=== PATIENT | female | born 1965 | race Two or more races ===

== ENCOUNTER 2022-03-07 23:08 | Inpatient (IN) | payer MEDICAID, OTHER ==
[~2022-03-07] VITALS: Ht 162.6 cm; Wt 49.0 kg
[2022-03-07] MEDS ORDERED: SODIUM CHLORIDE 0.9% 1,000 ML IV ONE ×2 (23:45)
[2022-03-07 23:47] LABS: Hemoglobin 10.1 g/dL (12.2-16.2)
[2022-03-07 23:49] LABS: Basophils # (auto) 0 10 ^3/uL (0-0.2); Basophils % (auto) 0.2 % (0.0-2.0); Eosinophils # (auto) 0 10 ^3/uL (0-0.8); Eosinophils % (auto) 0.1 % (0.0-7.0); Hematocrit 30.5 % (36.0-46.0); Lymphocytes # (auto) 1.4 10 ^3/uL (0.4-5.4); Lymphocytes % (auto) 5.6 % (10.0-50.0); Mean Corpuscular Hemoglobin 26.8 pg (28.0-32.0); Mean Corpuscular Volume 81.1 fL (80.0-100.0); Monocytes # (auto) 2.1 10 ^3/uL (0-1.3); Monocytes % (auto) 8.7 % (0.0-12.0); Neutrophils % (auto) 85.4 % (37.0-80.0); Nucleated Red Blood Cells % 0.1 %; Red Blood Cells 3.77 10^6/uL (4.0-5.20); Red Cell Distribution Width 18.5 % (11.8-14.3); White Blood Cell 24.6 10^3/uL (4.4-10.8)
[2022-03-08] MEDS ORDERED: metroNIDAZOLE 500MG/100ML 100 ML IV ONE
[2022-03-08] MEDS ORDERED: cefTRIAXone 1GM/50ML D5W 50 ML IV ONE
[2022-03-08 00:02] LABS: Albumin 2.7 g/dL (3.4-5.0); Calcium 10.3 mg/dL (8.5-10.1); Potassium 4.6 mmol/L (3.5-5.1)
[2022-03-08 00:05] LABS: Bilirubin, Total 1.4 mg/dL (0.2-1.0); Total Protein 8.7 g/dL (6.4-8.2)
[2022-03-08 00:27] LABS: Lactic Acid w/Reflex 2.1 mmol/L (0.4-2.0)
[2022-03-08] MEDS ORDERED: MORPHINE SULFATE 4 MG/ML SYR/VIAL IV ONE (01:00)
[2022-03-08] MEDS ORDERED: ONDANSETRON HCL 4 MG/2 ML VIAL IV ONE (01:00)
[2022-03-08] MEDS ORDERED: MORPHINE SULFATE 4 MG/ML SYR/VIAL ONE (06:44)
[2022-03-08] MEDS ORDERED: VANCOMYCIN 1GM/250ML 250 ML IV ONE (06:45)
[2022-03-08] MEDS ORDERED: MORPHINE SULFATE INJECTION 2 MG/ML SYRG IV ONE (07:15)
[2022-03-08 08:08] LABS: INR 1.33 (0.9-1.15); Partial Thromboplastin Time 37.9 sec (23.6-33.0)
[2022-03-08] MEDS ORDERED: HYDROmorphone HCL 2 MG/ML VL/or syr IV ONE (10:45)
[2022-03-08] MEDS ORDERED: NITROGLYCERIN 0.4 MG SL TAB SL PRN (11:15)
[2022-03-08] MEDS ORDERED: MORPHINE SULFATE INJECTION 2 MG/ML SYRG IV PRN ×2 (11:15→12:15)
[2022-03-08] MEDS ORDERED: OMNIPAQUE ORAL SOLN 500ml 12mg/ml PO ONE (11:54)
[2022-03-08] MEDS ORDERED: LORazepam 0.5 MG TAB PO PRN (12:15)
[2022-03-08] MEDS ORDERED: DOCUSATE SOD 100 MG CAP PO PRN (12:15)
[2022-03-08] MEDS ORDERED: ONDANSETRON HCL 4 MG/2 ML VIAL IV PRN (12:15)
[2022-03-08] MEDS ORDERED: hydrALAZINE HCL 20 MG/ML VL IV PRN (12:15)
[2022-03-08] MEDS: D5W/LACTATED RINGERS 1,000 ML IV SCH (13:40)
[2022-03-08] MEDS: metroNIDAZOLE 500MG/100ML 100 ML IV SCH ×2 (14:09→21:29)
[2022-03-08 15:51] LABS: Urine Bacteria FEW /hpf (None Seen); Urine Blood Negative /uL (Negative); Urine Specific Gravity 1.018 (1.001-1.035); Urine WBC 8 /hpf (0 - 5)
[2022-03-08] MEDS: HYDROmorphone HCL 2 MG/ML VL/or syr IV PRN ×2 (17:10→21:28)
[2022-03-08 19:26] LABS: INR 1.34 (0.9-1.15); Partial Thromboplastin Time 38.5 sec (23.6-33.0)
[2022-03-08 19:27] LABS: Magnesium 1.8 mg/dL (1.6-2.6); Phosphorus 2.3 mg/dL (2.5-4.90)
[2022-03-08] MEDS: HYDROcodone-ACET 5/325MG TAB PO PRN (20:47)
[2022-03-08 22:00] VITALS: BP 126/87
[2022-03-09] VITALS (7 sets, daily range): BP systolic 126–146; BP diastolic 77–84
[2022-03-09] MEDS ORDERED: cefTRIAXone 1GM/50ML D5W 50 ML IV SCH
[2022-03-09] MEDS: D5W/LACTATED RINGERS 1,000 ML IV SCH ×2 (01:35→15:08)
[2022-03-09] MEDS: HYDROmorphone HCL 2 MG/ML VL/or syr IV PRN ×4 (01:39→18:26)
[2022-03-09] MEDS: HYDROcodone-ACET 5/325MG TAB PO PRN (04:50)
[2022-03-09] MEDS: metroNIDAZOLE 500MG/100ML 100 ML IV SCH ×2 (06:12→13:45)
[2022-03-09 06:17] LABS: Eosinophils # (auto) 0 10 ^3/uL (0-0.8); Hematocrit 24.7 % (36.0-46.0); Red Blood Cells 3.08 10^6/uL (4.0-5.20)
[2022-03-09 06:19] LABS: Basophils # (auto) 0 10 ^3/uL (0-0.2); Basophils % (auto) 0.2 % (0.0-2.0); Hemoglobin 8.4 g/dL (12.2-16.2); Lymphocytes # (auto) 1.4 10 ^3/uL (0.4-5.4); Lymphocytes % (auto) 5.9 % (10.0-50.0); Mean Corpuscular Hemoglobin 27.2 pg (28.0-32.0); Mean Corpuscular Volume 80.2 fL (80.0-100.0); Monocytes # (auto) 1.5 10 ^3/uL (0-1.3); Monocytes % (auto) 6.1 % (0.0-12.0); Neutrophils # (auto) 21.3 10 ^3/uL (1.6-8.6); Neutrophils % (auto) 87.8 % (37.0-80.0); Red Cell Distribution Width 18.2 % (11.8-14.3); White Blood Cell 24.2 10^3/uL (4.4-10.8)
[2022-03-09 06:23] LABS: INR 1.37 (0.9-1.15); Partial Thromboplastin Time 40.6 sec (23.6-33.0)
[2022-03-09 06:34] LABS: Chloride 92 mmol/L (98-107); Sodium 133 mmol/L (136-145)
[2022-03-09 06:54] LABS: Alanine Aminotransferase 15 U/L (13-56); Albumin 2.2 g/dL (3.4-5.0); Alkaline Phosphatase 184 U/L (45-117); Anion Gap 11 (5-15); Aspartate Aminotransferase 19 U/L (15-37); Bilirubin, Total 0.9 mg/dL (0.2-1.0); Blood Urea Nitrogen 36 mg/dL (7-18); Calcium 9.4 mg/dL (8.5-10.1); Carbon Dioxide 30 mmol/L (21-32); Cholesterol 151 mg/dL (< 200); Creatine Kinase IFCC 17 U/L (26-192); GFR African American 62 mL/min; GFR Non-African American 51 mL/min; Glucose 133 mg/dL (74-106); HDL Cholesterol 24 mg/dL (40-59); LDL Cholesterol 100 mg/dL (< 100); Lipase 277 U/L (73-393); Phosphorus 1.9 mg/dL (2.5-4.90); Total Protein 7.5 g/dL (6.4-8.2); Triglycerides 140 mg/dL (< 150); Uric Acid 10.5 mg/dL (2.6-6.0)
[2022-03-09 07:42] LABS: CRP High Sensitivity > 19.0 mg/dL (< 0.3)
[2022-03-09 07:44] LABS: Potassium 2.9 mmol/L (3.5-5.1)
[2022-03-09] MEDS: POTASSIUM CHL 20MEQ/100ML 100 ML IV SCH ×2 (08:58→12:04)
[2022-03-09] MEDS ORDERED: HYDROmorphone HCL 2 MG/ML VL/or syr IV PRN (10:00)
[2022-03-09] MEDS: ENOXAPARIN SOD 40 MG/0.4 ML SYRINGE SC SCH (12:04)
[2022-03-09] MEDS ORDERED: POTASSIUM PHOSPHATE 44 MEQ in D5W 5% 250 ML IV ONE (17:45)
[2022-03-09] MEDS: PIPERACILLIN-TAZO 4.5GM 100 ML IV SCH (20:37)
[2022-03-10] VITALS (7 sets, daily range): BP systolic 100–139; BP diastolic 68–85
[2022-03-10 06:49] LABS: Albumin 2.2 g/dL (3.4-5.0); Calcium 9.6 mg/dL (8.5-10.1); Magnesium 2.6 mg/dL (1.6-2.6); Potassium 3.2 mmol/L (3.5-5.1)
[2022-03-10 06:53] LABS: BUN/Creatinine Ratio 29.8; Bilirubin, Total 0.6 mg/dL (0.2-1.0); Phosphorus 2.3 mg/dL (2.5-4.90); Total Protein 7.4 g/dL (6.4-8.2)
[2022-03-10] MEDS: PIPERACILLIN-TAZO 4.5GM 100 ML IV SCH ×2 (07:07→15:05)
[2022-03-10 07:09] LABS: Basophils # (auto) 0.1 10 ^3/uL (0-0.2); Basophils % (auto) 0.5 % (0.0-2.0); Eosinophils # (auto) 0 10 ^3/uL (0-0.8); Eosinophils % (auto) 0.3 % (0.0-7.0); Hematocrit 26.6 % (36.0-46.0); Hemoglobin 8.4 g/dL (12.2-16.2); Lymphocytes # (auto) 1.9 10 ^3/uL (0.4-5.4); Lymphocytes % (auto) 11.5 % (10.0-50.0); Mean Corpuscular Hemoglobin 25.9 pg (28.0-32.0); Mean Corpuscular Hgb Conc. 31.7 g/dL (32.0-36.0); Mean Corpuscular Volume 81.5 fL (80.0-100.0); Monocytes # (auto) 1.2 10 ^3/uL (0-1.3); Monocytes % (auto) 7.3 % (0.0-12.0); Neutrophils % (auto) 80.4 % (37.0-80.0); Nucleated Red Blood Cells % 0.1 %; Red Blood Cells 3.26 10^6/uL (4.0-5.20); Red Cell Distribution Width 18.7 % (11.8-14.3); White Blood Cell 16.2 10^3/uL (4.4-10.8)
[2022-03-10] MEDS: HYDROmorphone HCL 2 MG/ML VL/or syr IV PRN ×4 (08:15→21:48)
[2022-03-10] MEDS: ENOXAPARIN SOD 40 MG/0.4 ML SYRINGE SC SCH (10:39)
[2022-03-10] MEDS ORDERED: POTASSIUM CHL 20MEQ/100ML 100 ML IV ONE (11:00)
[2022-03-10] MEDS ORDERED: BISACODYL 10 MG RECT SUPP PR PRN (12:15)
[2022-03-10] MEDS: POTASSIUM CHL 20MEQ/100ML 100 ML IV SCH (12:19)
[2022-03-10] MEDS ORDERED: PIPERACILLIN-TAZO 4.5GM 100 ML IV SCH (14:45)
[2022-03-11] VITALS (7 sets, daily range): BP systolic 96–118; BP diastolic 70–128
[2022-03-11] MEDS: PIPERACILLIN-TAZO 4.5GM 100 ML IV SCH ×4 (00:57→22:28)
[2022-03-11 06:23] LABS: Basophils # (auto) 0.1 10 ^3/uL (0-0.2); Eosinophils # (auto) 0 10 ^3/uL (0-0.8); White Blood Cell 27.6 10^3/uL (4.4-10.8)
[2022-03-11 06:25] LABS: Basophils % (auto) 0.3 % (0.0-2.0); Hematocrit 27.5 % (36.0-46.0); Hemoglobin 9.2 g/dL (12.2-16.2); Lymphocytes # (auto) 2.2 10 ^3/uL (0.4-5.4); Lymphocytes % (auto) 7.9 % (10.0-50.0); Mean Corpuscular Hgb Conc. 33.4 g/dL (32.0-36.0); Mean Corpuscular Volume 80.6 fL (80.0-100.0); Monocytes # (auto) 1.4 10 ^3/uL (0-1.3); Monocytes % (auto) 5.1 % (0.0-12.0); Neutrophils # (auto) 23.9 10 ^3/uL (1.6-8.6); Neutrophils % (auto) 86.7 % (37.0-80.0); Red Blood Cells 3.41 10^6/uL (4.0-5.20)
[2022-03-11] MEDS: POTASSIUM CHL 20MEQ/100ML 100 ML IV SCH ×2 (06:25→06:26)
[2022-03-11 06:30] LABS: Calcium 9.5 mg/dL (8.5-10.1); Magnesium 2.7 mg/dL (1.6-2.6); Potassium 3.6 mmol/L (3.5-5.1)
[2022-03-11 06:32] LABS: BUN/Creatinine Ratio 31.2
[2022-03-11] MEDS: ENOXAPARIN SOD 40 MG/0.4 ML SYRINGE SC SCH (11:35)
[2022-03-11] MEDS: HYDROmorphone HCL 2 MG/ML VL/or syr IV PRN ×2 (11:38→17:09)
[2022-03-11] MEDS ORDERED: TPN PER PHARMACY 0 ML IV SCH (17:00)
[2022-03-11] MEDS ORDERED: AMINO ACID INFUSION IN D10W 1,000 ML IV NR (20:00)
[2022-03-11 22:21] LABS: Urine Bacteria FEW /hpf (None Seen); Urine Blood TRACE /uL (Negative); Urine WBC 16 /hpf (0 - 5)
[2022-03-11 22:22] LABS: Alcohol, Urine < 3.0 mg/dL (0-10); Amphetamine Screen, Urine NEGATIVE (NEGATIVE); Barbiturate Scree,Urine NEGATIVE (NEGATIVE); Benzodiazephine Screen, Urine NEGATIVE (NEGATIVE); Cannabinoid Screen, Urine NEGATIVE (NEGATIVE); Cocaine Screen, Urine NEGATIVE (NEGATIVE); Opiate Scree,Urine POSITIVE (NEGATIVE); Phencyclidine Screen, Urine NEGATIVE (NEGATIVE); Protein, Urine 92.5 mg/dL (0.0-11.9)
[2022-03-12] MEDS ORDERED: DEXTROSE (50%) 50ML SYRG IV SCH
[2022-03-12] MEDS: ACCU-CHEK COMFORT CURVE STRIP VI SCH ×5 (00:41→23:47)
[2022-03-12 05:00] VITALS: BP 114/77
[2022-03-12 05:31] LABS: Basophils # (auto) 0.1 10 ^3/uL (0-0.2); Eosinophils # (auto) 0.2 10 ^3/uL (0-0.8); Nucleated Red Blood Cells % 0.1 %
[2022-03-12 05:34] LABS: Basophils % (auto) 0.5 % (0.0-2.0); Eosinophils % (auto) 1.2 % (0.0-7.0); Hematocrit 24.4 % (36.0-46.0); Hemoglobin 8.2 g/dL (12.2-16.2); Lymphocytes # (auto) 2.1 10 ^3/uL (0.4-5.4); Lymphocytes % (auto) 11.4 % (10.0-50.0); Mean Corpuscular Hgb Conc. 33.4 g/dL (32.0-36.0); Mean Corpuscular Volume 80.8 fL (80.0-100.0); Monocytes # (auto) 1.5 10 ^3/uL (0-1.3); Monocytes % (auto) 7.8 % (0.0-12.0); Neutrophils # (auto) 14.9 10 ^3/uL (1.6-8.6); Neutrophils % (auto) 79.1 % (37.0-80.0); Red Blood Cells 3.02 10^6/uL (4.0-5.20); Red Cell Distribution Width 18.7 % (11.8-14.3); White Blood Cell 18.9 10^3/uL (4.4-10.8)
[2022-03-12 05:53] LABS: Albumin 2.3 g/dL (3.4-5.0); Bilirubin, Total 0.6 mg/dL (0.2-1.0); Calcium 9.3 mg/dL (8.5-10.1); Magnesium 2.2 mg/dL (1.6-2.6); Phosphorus 2.8 mg/dL (2.5-4.90); Total Protein 7.4 g/dL (6.4-8.2)
[2022-03-12] MEDS: InsuLIN REG 1unit/0.01ml Soln (100units/ml) SC SCH ×5 (06:00→23:47)
[2022-03-12 06:20] LABS: INR 1.33 (0.9-1.15)
[2022-03-12] MEDS: PIPERACILLIN-TAZO 4.5GM 100 ML IV SCH ×3 (06:29→22:47)
[2022-03-12] MEDS: HYDROmorphone HCL 2 MG/ML VL/or syr IV PRN ×4 (06:43→22:16)
[2022-03-12 09:00] VITALS: BP 148/100
[2022-03-12] MEDS: ENOXAPARIN SOD 40 MG/0.4 ML SYRINGE SC SCH (10:51)
[2022-03-12 12:48] VITALS: BP 115/67
[2022-03-12] MEDS: POTASSIUM CHL 20MEQ/100ML 100 ML IV SCH ×3 (16:10→20:29)
[2022-03-12 17:37] VITALS: BP 118/70
[2022-03-12] MEDS ORDERED: PPN PER PHARMACY IV NR ×9 (20:00)
[2022-03-12 21:14] VITALS: BP 102/73
[2022-03-13] MEDS: HYDROmorphone HCL 2 MG/ML VL/or syr IV PRN ×4 (02:52→20:04)
[2022-03-13 05:39] VITALS: BP 112/63
[2022-03-13 05:46] LABS: Potassium 3.1 mmol/L (3.5-5.1)
[2022-03-13 05:53] LABS: Albumin 2.1 g/dL (3.4-5.0); BUN/Creatinine Ratio 26.7; Bilirubin, Total 0.8 mg/dL (0.2-1.0); Calcium 8.9 mg/dL (8.5-10.1); Magnesium 2.5 mg/dL (1.6-2.6); Total Protein 6.5 g/dL (6.4-8.2)
[2022-03-13] MEDS: ACCU-CHEK COMFORT CURVE STRIP VI SCH ×3 (06:07→17:37)
[2022-03-13] MEDS: InsuLIN REG 1unit/0.01ml Soln (100units/ml) SC SCH ×3 (06:07→17:40)
[2022-03-13] MEDS: PIPERACILLIN-TAZO 4.5GM 100 ML IV SCH (06:24)
[2022-03-13 07:26] LABS: Basophils # (auto) 0.1 10 ^3/uL (0-0.2); Eosinophils # (auto) 0.2 10 ^3/uL (0-0.8); Eosinophils % (auto) 1.1 % (0.0-7.0); Mean Corpuscular Hgb Conc. 32.7 g/dL (32.0-36.0); Monocytes # (auto) 1.1 10 ^3/uL (0-1.3); Nucleated Red Blood Cells % 0.1 %
[2022-03-13 07:28] LABS: Basophils % (auto) 0.8 % (0.0-2.0); Hematocrit 22.3 % (36.0-46.0); Hemoglobin 7.3 g/dL (12.2-16.2); Lymphocytes # (auto) 1.7 10 ^3/uL (0.4-5.4); Lymphocytes % (auto) 10.6 % (10.0-50.0); Mean Corpuscular Hemoglobin 26.5 pg (28.0-32.0); Mean Corpuscular Volume 81.1 fL (80.0-100.0); Neutrophils # (auto) 12.9 10 ^3/uL (1.6-8.6); Neutrophils % (auto) 80.5 % (37.0-80.0); Red Blood Cells 2.75 10^6/uL (4.0-5.20); Red Cell Distribution Width 18.7 % (11.8-14.3); White Blood Cell 16.1 10^3/uL (4.4-10.8)
[2022-03-13 08:30] VITALS: BP 132/73
[2022-03-13] MEDS ORDERED: POTASSIUM PHOSPHATE 26.4 MEQ in SODIUM CHL 0.9% 100 ML IV ONE ×2 (08:45→10:45)
[2022-03-13] MEDS: ENOXAPARIN SOD 40 MG/0.4 ML SYRINGE SC SCH (09:01)
[2022-03-13] MEDS: POTASSIUM CHL 20MEQ/100ML 100 ML IV SCH ×2 (09:02→12:55)
[2022-03-13] MEDS: PIPERACILLIN-TAZOB 2.25GM 50 ML IV SCH (17:41)
[2022-03-13] MEDS ORDERED: TPN PER PHARMACY IV NR ×10 (20:00)
[2022-03-13 22:00] VITALS: BP 112/7
[2022-03-14] MEDS: PIPERACILLIN-TAZOB 2.25GM 50 ML IV SCH ×4 (00:28→17:14)
[2022-03-14] MEDS: ACCU-CHEK COMFORT CURVE STRIP VI SCH ×4 (00:28→17:33)
[2022-03-14] MEDS: InsuLIN REG 1unit/0.01ml Soln (100units/ml) SC SCH ×4 (00:29→17:33)
[2022-03-14] MEDS: HYDROmorphone HCL 2 MG/ML VL/or syr IV PRN ×5 (00:51→21:37)
[2022-03-14 04:38] VITALS: BP 128/71
[2022-03-14 06:04] LABS: Potassium 3.2 mmol/L (3.5-5.1)
[2022-03-14 06:19] LABS: Albumin 2.2 g/dL (3.4-5.0); BUN/Creatinine Ratio 32.7; Bilirubin, Total 0.7 mg/dL (0.2-1.0); Calcium 9.1 mg/dL (8.5-10.1); Magnesium 2.6 mg/dL (1.6-2.6); Phosphorus 3.3 mg/dL (2.5-4.90)
[2022-03-14 06:34] LABS: Basophils # (auto) 0.1 10 ^3/uL (0-0.2); Eosinophils # (auto) 0.1 10 ^3/uL (0-0.8); Eosinophils % (auto) 0.7 % (0.0-7.0); Hematocrit 23.5 % (36.0-46.0); Lymphocytes # (auto) 1.9 10 ^3/uL (0.4-5.4); Mean Corpuscular Hemoglobin 27.1 pg (28.0-32.0); Monocytes # (auto) 1.1 10 ^3/uL (0-1.3); Neutrophils % (auto) 80.7 % (37.0-80.0); Nucleated Red Blood Cells % 0.3 %
[2022-03-14 06:37] LABS: Basophils % (auto) 0.5 % (0.0-2.0); Hemoglobin 7.9 g/dL (12.2-16.2); Lymphocytes % (auto) 11.5 % (10.0-50.0); Mean Corpuscular Hgb Conc. 33.5 g/dL (32.0-36.0); Mean Corpuscular Volume 81.1 fL (80.0-100.0); Monocytes % (auto) 6.6 % (0.0-12.0); Red Blood Cells 2.89 10^6/uL (4.0-5.20); Red Cell Distribution Width 18.3 % (11.8-14.3); White Blood Cell 16.2 10^3/uL (4.4-10.8)
[2022-03-14] MEDS ORDERED: POTASSIUM CHL 20MEQ/100ML 100 ML IV SCH (09:45)
[2022-03-14] MEDS: ENOXAPARIN SOD 40 MG/0.4 ML SYRINGE SC SCH (10:17)
[2022-03-14 12:30] VITALS: BP 119/66
[2022-03-14] MEDS ORDERED: TPN PER PHARMACY IV NR ×9 (20:00)
[2022-03-14 22:00] VITALS: BP 129/79
[2022-03-15] MEDS: HYDROmorphone HCL 2 MG/ML VL/or syr IV PRN ×6 (01:02→23:40)
[2022-03-15 05:00] VITALS: BP 122/83
[2022-03-15] MEDS: ACCU-CHEK COMFORT CURVE STRIP VI SCH ×4 (06:00→17:37)
[2022-03-15] MEDS: PIPERACILLIN-TAZOB 2.25GM 50 ML IV SCH ×4 (06:00→17:37)
[2022-03-15] MEDS: InsuLIN REG 1unit/0.01ml Soln (100units/ml) SC SCH ×4 (06:00→17:39)
[2022-03-15 08:37] LABS: Basophils # (auto) 0.1 10 ^3/uL (0-0.2); Eosinophils # (auto) 0.1 10 ^3/uL (0-0.8); Lymphocytes # (auto) 1.7 10 ^3/uL (0.4-5.4); Mean Corpuscular Hgb Conc. 33.7 g/dL (32.0-36.0); Monocytes # (auto) 0.8 10 ^3/uL (0-1.3); Nucleated Red Blood Cells % 0.1 %
[2022-03-15 08:39] LABS: Basophils % (auto) 0.7 % (0.0-2.0); Eosinophils % (auto) 0.6 % (0.0-7.0); Hematocrit 20.4 % (36.0-46.0); Lymphocytes % (auto) 12.8 % (10.0-50.0); Mean Corpuscular Hemoglobin 27.7 pg (28.0-32.0); Mean Corpuscular Volume 82.2 fL (80.0-100.0); Monocytes % (auto) 5.9 % (0.0-12.0); Neutrophils # (auto) 10.8 10 ^3/uL (1.6-8.6); Red Blood Cells 2.48 10^6/uL (4.0-5.20); White Blood Cell 13.5 10^3/uL (4.4-10.8)
[2022-03-15 08:50] LABS: Albumin 2.2 g/dL (3.4-5.0); Calcium 8.8 mg/dL (8.5-10.1); Magnesium 2.2 mg/dL (1.6-2.6)
[2022-03-15 08:51] LABS: Hemoglobin 6.9 g/dL (12.2-16.2)
[2022-03-15 08:53] LABS: BUN/Creatinine Ratio 32.6; Bilirubin, Total 0.8 mg/dL (0.2-1.0)
[2022-03-15 08:55] LABS: Potassium 2.9 mmol/L (3.5-5.1)
[2022-03-15 09:00] VITALS: BP 121/75
[2022-03-15] MEDS ORDERED: GASTROGRAFIN 120 ML SOL ONE (09:10)
[2022-03-15] MEDS: ENOXAPARIN SOD 40 MG/0.4 ML SYRINGE SC SCH (10:00)
[2022-03-15] MEDS ORDERED: POTASSIUM CHL 20MEQ/100ML 100 ML IV SCH (10:15)
[2022-03-15 13:07] LABS: Hematocrit 25.1 % (36.0-46.0); Hemoglobin 8.4 g/dL (12.2-16.2)
[2022-03-15] MEDS ORDERED: POTASSIUM CHL 20MEQ/100ML 100 ML IV ONE (14:00)
[2022-03-15] MEDS ORDERED: TPN PER PHARMACY IV NR ×10 (20:00)
[2022-03-15 22:00] VITALS: BP 117/86
[2022-03-16] MEDS: PIPERACILLIN-TAZOB 2.25GM 50 ML IV SCH ×5 (00:16→23:10)
[2022-03-16] MEDS: ACCU-CHEK COMFORT CURVE STRIP VI SCH ×5 (00:17→23:23)
[2022-03-16] MEDS: InsuLIN REG 1unit/0.01ml Soln (100units/ml) SC SCH ×5 (00:18→23:59)
[2022-03-16] MEDS: HYDROmorphone HCL 2 MG/ML VL/or syr IV PRN ×8 (04:01→23:11)
[2022-03-16 05:00] VITALS: BP 113/73
[2022-03-16 06:13] LABS: Hematocrit 23.5 % (36.0-46.0); Hemoglobin 8.2 g/dL (12.2-16.2); Mean Corpuscular Hemoglobin 28.4 pg (28.0-32.0); Mean Corpuscular Hgb Conc. 34.8 g/dL (32.0-36.0); Mean Corpuscular Volume 81.6 fL (80.0-100.0); Red Blood Cells 2.88 10^6/uL (4.0-5.20); Red Cell Distribution Width 19.2 % (11.8-14.3); White Blood Cell 17.2 10^3/uL (4.4-10.8)
[2022-03-16 06:26] LABS: Band Neutrophils % (manual) 0; Basophils % (manual) 0 (0.0-2.0); Blast Cells 0; Eosinophils % (manual) 0 (0-7); Metamyelocytes % 0; Myelocytes % 0; Promyelocytes % 0; Reactive Lymphocytes 0
[2022-03-16 06:48] LABS: Albumin 2.4 g/dL (3.4-5.0); BUN/Creatinine Ratio 39.6; Calcium 9.4 mg/dL (8.5-10.1); Magnesium 1.9 mg/dL (1.6-2.6); Phosphorus 3.4 mg/dL (2.5-4.90); Total Protein 7.7 g/dL (6.4-8.2)
[2022-03-16 06:51] LABS: Potassium 2.9 mmol/L (3.5-5.1)
[2022-03-16 07:56] LABS: Lymphocytes % (manual) 12 (10.0-50.0); Monocytes % (manual) 11 (0-12)
[2022-03-16 08:00] VITALS: BP 123/77
[2022-03-16] MEDS: POTASSIUM CHL 20MEQ/100ML 100 ML IV SCH ×4 (08:30→16:48)
[2022-03-16 09:00] VITALS: BP 123/77
[2022-03-16] MEDS: ENOXAPARIN SOD 40 MG/0.4 ML SYRINGE SC SCH (10:29)
[2022-03-16] MEDS ORDERED: POTASSIUM EFFERVESENT TAB 25 MEQ PO ONE (11:00)
[2022-03-16 13:00] VITALS: BP 112/81
[2022-03-16] MEDS ORDERED: HYDROmorphone HCL 2 MG/ML VL/or syr IV PRN (19:15)
[2022-03-16 19:30] VITALS: BP 140/80
[2022-03-16] MEDS ORDERED: TPN PER PHARMACY IV NR ×11 (20:00)
[2022-03-16 22:00] VITALS: BP 140/80
[2022-03-17] MEDS: HYDROmorphone HCL 2 MG/ML VL/or syr IV PRN ×6 (02:49→21:11)
[2022-03-17 05:00] VITALS: BP 139/82
[2022-03-17 05:39] LABS: Basophils # (auto) 0.1 10 ^3/uL (0-0.2); Basophils % (auto) 0.7 % (0.0-2.0); Lymphocytes # (auto) 2.1 10 ^3/uL (0.4-5.4); Monocytes # (auto) 1.1 10 ^3/uL (0-1.3); Neutrophils # (auto) 15.3 10 ^3/uL (1.6-8.6)
[2022-03-17 05:40] LABS: Eosinophils # (auto) 0.2 10 ^3/uL (0-0.8); Eosinophils % (auto) 0.9 % (0.0-7.0); Hematocrit 23.6 % (36.0-46.0); Hemoglobin 8.1 g/dL (12.2-16.2); Mean Corpuscular Hemoglobin 28.1 pg (28.0-32.0); Mean Corpuscular Hgb Conc. 34.2 g/dL (32.0-36.0); Mean Corpuscular Volume 82.4 fL (80.0-100.0); Monocytes % (auto) 5.9 % (0.0-12.0); Neutrophils % (auto) 81.5 % (37.0-80.0); Red Blood Cells 2.87 10^6/uL (4.0-5.20); White Blood Cell 18.8 10^3/uL (4.4-10.8)
[2022-03-17 05:42] LABS: Red Cell Distribution Width 20.2 % (11.8-14.3)
[2022-03-17] MEDS: PIPERACILLIN-TAZOB 2.25GM 50 ML IV SCH ×3 (05:48→17:54)
[2022-03-17 05:55] LABS: Albumin 2.3 g/dL (3.4-5.0); BUN/Creatinine Ratio 42.9; Magnesium 2.1 mg/dL (1.6-2.6); Potassium 3.5 mmol/L (3.5-5.1)
[2022-03-17 05:57] LABS: Bilirubin, Total 0.8 mg/dL (0.2-1.0); Phosphorus 2.6 mg/dL (2.5-4.90); Total Protein 7.4 g/dL (6.4-8.2)
[2022-03-17] MEDS: InsuLIN REG 1unit/0.01ml Soln (100units/ml) SC SCH ×3 (06:00→17:54)
[2022-03-17] MEDS: ACCU-CHEK COMFORT CURVE STRIP VI SCH ×3 (06:00→17:54)
[2022-03-17 08:00] VITALS: BP 114/77
[2022-03-17 09:00] VITALS: BP 114/77
[2022-03-17] MEDS: ENOXAPARIN SOD 40 MG/0.4 ML SYRINGE SC SCH (09:00)
[2022-03-17] MEDS: ACETAMINOPHEN/CODEINE#3 (300/30mg) TAB PO PRN ×2 (12:09→16:13)
[2022-03-17 13:00] VITALS: BP 108/80
[2022-03-17 16:38] VITALS: BP 114/79
[2022-03-17 22:00] VITALS: BP 104/76
[2022-03-18] MEDS: HYDROmorphone HCL 2 MG/ML VL/or syr IV PRN ×5 (00:07→13:05)
[2022-03-18] MEDS: PIPERACILLIN-TAZOB 2.25GM 50 ML IV SCH ×3 (00:07→12:20)
[2022-03-18] MEDS: ACCU-CHEK COMFORT CURVE STRIP VI SCH ×3 (00:08→12:00)
[2022-03-18] MEDS: ACETAMINOPHEN/CODEINE#3 (300/30mg) TAB PO PRN (04:28)
[2022-03-18 05:00] VITALS: BP 102/66
[2022-03-18 05:37] LABS: Basophils % (auto) 0.8 % (0.0-2.0); Eosinophils # (auto) 0.2 10 ^3/uL (0-0.8); Hematocrit 25.6 % (36.0-46.0); Lymphocytes # (auto) 2.6 10 ^3/uL (0.4-5.4)
[2022-03-18 05:38] LABS: Basophils # (auto) 0.1 10 ^3/uL (0-0.2); Eosinophils % (auto) 1.1 % (0.0-7.0); Hemoglobin 8.4 g/dL (12.2-16.2); Lymphocytes % (auto) 13.3 % (10.0-50.0); Mean Corpuscular Hgb Conc. 32.7 g/dL (32.0-36.0); Mean Corpuscular Volume 82.6 fL (80.0-100.0); Monocytes % (auto) 5.2 % (0.0-12.0); Neutrophils # (auto) 15.4 10 ^3/uL (1.6-8.6); Neutrophils % (auto) 79.6 % (37.0-80.0); White Blood Cell 19.4 10^3/uL (4.4-10.8)
[2022-03-18 05:46] LABS: Red Cell Distribution Width 21.8 % (11.8-14.3)
[2022-03-18 05:55] LABS: Albumin 2.5 g/dL (3.4-5.0); BUN/Creatinine Ratio 40.2; Calcium 9.7 mg/dL (8.5-10.1)
[2022-03-18 05:56] LABS: Total Protein 7.9 g/dL (6.4-8.2)
[2022-03-18] MEDS: InsuLIN REG 1unit/0.01ml Soln (100units/ml) SC SCH ×3 (06:00→12:00)
[2022-03-18] MEDS ORDERED: LEVO500T31 PO (08:24)
[2022-03-18] MEDS ORDERED: LACT1CAP2 PO (08:24)
[2022-03-18] MEDS ORDERED: METR500T PO (08:24)
[2022-03-18 09:07] VITALS: BP 101/59
[2022-03-18] MEDS: ENOXAPARIN SOD 40 MG/0.4 ML SYRINGE SC SCH (10:00)
[2022-03-18 13:30] VITALS: BP 99/60
[2022-03-18 13:44] VITALS: BP 99/60
== END 2022-03-18 15:26 | disposition home health service (06) | DRG 720 ==
LOC: ER 23:08 → EDBD 23:08 → OVERFLOW 03-08 11:04 → EAST 03-08 15:59 → TELE-EAST 03-08 16:00 → EAST 03-15 04:25
PROVIDERS: ADMIT Hospitalist; ATTEND Internal Medicine
PROC: 3E0436Z Introduction of Nutritional Substance into Central Vein, Percutaneous Approach (ICD-10-PCS; principal; 2022-03-12)
DX: A41.9 Sepsis, unspecified organism (principal); N17.0 Acute kidney failure with tubular necrosis; E44.0 Moderate protein-calorie malnutrition; C79.89 Secondary malignant neoplasm of other specified sites; K94.12 Enterostomy infection; E87.1 Hypo-osmolality and hyponatremia; L03.311 Cellulitis of abdominal wall; T81.30XA Disruption of wound, unspecified, initial encounter; C50.919 Malignant neoplasm of unspecified site of unspecified female breast; D64.9 Anemia, unspecified; G89.4 Chronic pain syndrome; N18.32 Chronic kidney disease, stage 3b; Z20.822 Contact with and (suspected) exposure to COVID-19; Y83.8 Other surgical procedures as the cause of abnormal reaction of the patient, or of later complication, without mention of misadventure at the time of the procedure; J43.9 Emphysema, unspecified; L76.34 Postprocedural seroma of skin and subcutaneous tissue following other procedure; Z68.20 Body mass index [BMI] 20.0-20.9, adult; Y92.89 Other specified places as the place of occurrence of the external cause
CPT/HCPCS: 36415; 71045; 71260; 74176; 74177; 74250; 80048; 80053; 80061; 80307; 81001; 82550; 82728; 82962; 83036; 83605; 83615; 83690; 83735; 83880; 84100; 84156; 84443; 84478; 84484; 84550; 85007; 85014; 85018; 85025; 85027; 85379; 85610; 85652; 85730; 86141; 86850; 86900; 86901; 87040; 87077; 87086; 87186; 87205; 93005; 96365; 96366; 96367; 96368; 96375; 96376; G0378; J0696; J1815; J2405; J2543; J3480; J3490; J7060; J7131